=== PATIENT | female | born 1995 | race African-American/Black ===

== ENCOUNTER 2016-10-28 20:24 | Emergency (ER) | payer BC ==
[2016-10-28 21:12] VITALS: BP 108/75
--- NOTE | 2016-10-28 21:57 | UC ---
Throat Pain/Nasal Campbell HPI - HPI Summary HPI Summary: onset of dysphagia, sense of difficulty swallowing, although throat is not all that sore--over the past 2 days. Has a cough, initially productive, but now feels tight in the upper airways and cannot expectorate. Low grade fever. 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 - History of Current Complaint Chief Complaint: UCGeneralIllness Stated Complaint: COUGH/SWOLLEN GLANDS Time Seen by Provider: 10/28/16 21:47 Hx Obtained From: Patient Hx Last Menstrual Period: 09/13/16 ?: No Onset/Duration: Gradual Onset, Lasting Days - 3 Severity: Moderate Cough: Nonproductive Associated Signs & Symptoms: Positive: Dysphagia, Hoarseness - Epiglottits Risk Factors Epiglottis Risk Factors: Negative - Allergies/Home Medications Allergies/Adverse Reactions: Allergies Allergy/AdvReac Type Severity Reaction Status Date / Time No Known Allergies Allergy Verified 10/28/16 21:05 PMH/Surg Hx/FS Hx/Imm Hx Endocrine History Of: Reports: Thyroid Disease - Hyperthyroid - Surgical History Surgical History: None - Family History Known Family History: Positive: Respiratory Disease - Social History Occupation: Student Lives: With Family Alcohol Use: Occasionally Substance Use Type: None Smoking Status (MU): Never Smoked Tobacco Review of Systems Constitutional: Fever, Fatigue Skin: Negative Eyes: Negative ENT: Sore Throat Respiratory: Cough Cardiovascular: Negative Gastrointestinal: Negative Genitourinary: Negative Motor: Negative Neurovascular: Negative Musculoskeletal: Negative Neurological: Negative Psychological: Negative All Other Systems Reviewed And Are Negative: Yes Physical Exam Triage Information Reviewed: Yes Appearance: Well-Appearing, Thin Vital Signs: Initial Vital Signs Temp 100.0 F 10/28/16 21:06 Pulse 106 10/28/16 21:06 Resp 16 10/28/16 21:06 BP 108/75 10/28/16 21:06 Pulse Ox 100 10/28/16 21:06 Eye Exam: Normal Eyes: Positive: Conjunctiva Clear ENT: Positive: Pharyngeal erythema, TMs normal, Tonsillar swelling Neck: Positive: Supple, Enlarged Nodes @ - tonsillar and anterior cervical Respiratory: Positive: Lungs clear, Normal breath sounds Cardiovascular: Positive: RRR, No Murmur Neurological Exam: Normal Neurological: Positive: Alert, Muscle Tone Normal Psychological Exam: Normal Skin Exam: Normal Diagnostics - Laboratory Diagnostic Studies Completed/Ordered: rapid strep negative. Throat Pain/Nasal Course/Dx - Course Course Of Treatment: symptomatic treatment of viral illness - Differential Dx/Diagnosis Differential Diagnosis/HQI/PQRI: Pharyngitis, Tonsillitis, URI Provider Diagnoses: pharyngitis. Discharge - Discharge Plan Condition: Stable Disposition: HOME Patient Education Materials: Pharyngitis (ED) Additional Instructions: Treat your symptoms with ibuprofen. Guaifensin (mucinex) might help you to expectorate some of the phlegm in your upper airways.
== END 2016-10-28 22:18 | disposition home or self-care (01) ==
LOC: UCCORT 20:24
DX: J02.9 Acute pharyngitis, unspecified (principal); R05 Cough; R50.9 Fever, unspecified
CPT/HCPCS: 87651; 99211; G0463